=== PATIENT | female | born 1990 | race Caucasian/White ===

== ENCOUNTER 2022-07-17 07:32 | Day surgery (SDC) | payer OTHER, SELFPAY ==
[2022-07-17] VITALS (12 sets, daily range): BP systolic 81–113; BP diastolic 50–69; PULSE 52–70; RESP 14–16; TEMP 36.1–37.1; O2SAT 96–100; BMI 25.9
[2022-07-17] MEDS: LACTATED RINGERS 1000 ML 1,000 ML 100 ML IV ×2 (07:30→10:38)
[2022-07-17] MEDS: SODIUM CHLORIDE 0.9 % (FLUSH) 10 ML SYRINGE IVF (07:52)
[2022-07-17 08:42] LABS: HCG Qualitative* Negative (Negative)
[2022-07-17] MEDS: CLINDAMYCIN 900 MG/50 ML-D5W IVPB (09:31)
[2022-07-17] MEDS: BUPIVACAINE 0.25% 30 ML INJECTION (09:44)
--- NOTE | 2022-07-17 10:16 | P.GSOP_ITS ---
Operative Note Date of procedure: 07/17/22 Type of Procedure: Laparoscopic cholecystectomy Procedure Description: After discussing the risks and benefits of the procedure, the patient signed informed consent.? The operative site was marked and the patient was brought to the operating room and placed on the operating table in supine position.? Care was taken to pad the patient's pressure points.?? The patient was then intubated by anesthesia.?? The operative site was then prepped and draped in the usual sterile fashion.? A time-out was then performed. Entrance to the abdomen was gained via a 5 mm Visiport in the left upper quadrant. The abdomen was insufflated and briefly surveyed for signs of injury. There was none. It should be noted that the patient desired for her belly button incision to be placed through her scar from her belly button piercing and to close the piercing. The skin for the 10 mm port was excised in an ellipse around the superior aspect of the piercing scar and the tract of the piercing was excised using cautery. A small ellipse was created on the inferior aspect to excise the opening inferiorly. A 10 mm umbilical port was placed here as well as 2 working ports along the right costal margin, all under direct vision. The patient was then placed in reverse Trendelenburg position with the right side up. The gallbladder fundus was grasped and retracted cephalad. A small amount of dissection was needed to free some filmy adhesions from the gallbladder. The infundibulum was grasped. A combination of hook cautery and blunt dissection was used to carefully dissect out the cystic duct and artery until they could clearly be seen entering the gallbladder without any intervening structures. The gallbladder was dissected off the cystic plate to achieve the critical view. Once this was achieved the cystic duct and artery were each clipped with 2 clips proximally and 1 clip distally and transected with the scissors. The gallbladder was then taken off of the liver bed and removed from the abdomen using an Endo- Catch bag. The gallbladder bed was surveyed for hemostasis which appeared adequate. The remaining ports were then removed and the abdomen desufflated. The umbilical port fascia was closed with 0 Vicryl. The skin was closed with absorbable subcuticular suture, including the inferior ellipse from the patient's piercing. Sterile dressings were then applied. Instrument sponge and needle counts were correct at the end of the case. The patient was then woken and transferred to the PACU in stable condition. ? The patient tolerated the procedure well. Findings: Cholelithiasis Anesthesia: CLEMENTE Surgeon: Mechelle Swain MD Condition: stable Disposition: PACU
--- NOTE | 2022-07-17 10:25 | W.ANESCHARGE ---
Anesthesia Charges Start Date/Time Anesthesia Start Date: 07/17/22 Anesthesia Start Time: 09:20 Stop Date/Time Anesthesia Stop Date: 07/17/22 Anesthesia Stop Time: 10:26 Summary Emergency: No
--- NOTE | 2022-07-17 10:42 | W.ANESCHARGE ---
Anesthesia Charges Start Date/Time Anesthesia Start Date: 07/17/22 Anesthesia Start Time: 09:20 Stop Date/Time Anesthesia Stop Date: 07/17/22 Anesthesia Stop Time: 10:26 Summary Emergency: No
== END 2022-07-17 12:01 | disposition home or self-care (01) ==
PROVIDERS: Anesthesiology; Visit Provider Surgery
PROC: 0FT44ZZ Resection of Gallbladder, Percutaneous Endoscopic Approach (ICD-10-PCS; CPT 47562; principal; 2022-07-17 08:45)
DX: K80.10 Calculus of gallbladder with chronic cholecystitis without obstruction (principal)
CPT/HCPCS: 47562; 00790; 84703; 88304; J0330; J1100; J1200; J1885; J2405; J2704; J3010; J3490; J7120; S0077